=== PATIENT | female | born 1970 | race Caucasian/White ===

== ENCOUNTER → 2017-07-22 | Outpatient (CLI) | payer BC ==
[~2017-07-22] VITALS: Ht 165.1 cm; Wt 105.1 kg
[2017-07-22 14:45] VITALS: BP 118/70; PULSE 111; Ht 165.1 cm; Wt 105.1 kg
== END | disposition home or self-care (01) ==
LOC: C.NEUR 14:28
PROVIDERS: ATTEND Physician Assistant
DX: G47.30 Sleep apnea, unspecified (principal)

== ENCOUNTER → 2018-01-11 | Outpatient (CLI) | payer OTHER ==
--- NOTE | 2018-01-12 16:35 | PULMONARY FUNCTION TEST ---
CLINICAL DATA: 47-year-old female with height of 65 inches and a weight of 220 pounds referred for dyspnea and chest pain by NISREEN Franco. Spirometry pre- and post-bronchodilator were performed. FINDINGS: Pre-bronchodilator spirometry is within normal limits. FVC was 117% of predicted. FEV1 was 111% of predicted. [id number] was 89% of predicted. There was no significant improvement after inhaled bronchodilator. IMPRESSION: Normal baseline spirometry with no improvement after inhaled bronchodilator. MTDD
== END | disposition home or self-care (01) ==
LOC: C.RC 13:47
PROVIDERS: ATTEND Nurse Practitioner
DX: R06.02 Shortness of breath (principal); R07.89 Other chest pain; Z72.0 Tobacco use

== ENCOUNTER → 2018-01-28 | Outpatient (CLI) | payer OTHER ==
[~2018-01-28] MED LIST: OPTIRAY 320 IV PRN
--- NOTE | 2018-01-28 15:46 | DIAGNOSTIC IMAGING REPORT ---
CT SCAN OF THE CHEST WITH IV CONTRAST CLINICAL HISTORY: Vocal cord paralysis. COMPARISON STUDY: No priors. TECHNIQUE: Following the IV administration of 92 cc of Optiray 320, CT scan of the thorax was performed from the thoracic inlet to the upper abdomen. Images are reviewed in the axial, sagittal, and coronal planes. IV contrast was administered without complication. A dose lowering technique was utilized adhering to the principles of ALARA. CT DOSE: 2395.59 mGy.cm FINDINGS: Thyroid: Imaged portions of the thyroid gland are normal in size and attenuation. Thoracic aorta: The thoracic aorta is normal in caliber and demonstrates standard 3-vessel arch anatomy. No dissection is seen. Pulmonary vasculature: The pulmonary trunk is normal in caliber. There are no filling defects identified in the central pulmonary vessels to indicate pulmonary embolus. Note that this examination was not protocoled for evaluation of the pulmonary arteries. Heart: The heart is enlarged and without pericardial effusion. Lungs and pleural spaces: Evaluation of lung parenchyma is modestly degraded by motion artifact. There is no airspace consolidation or pleural effusion. No concerning pulmonary lesion is seen. The trachea and central airways are clear. Mediastinum: There is no mediastinal lymphadenopathy. Maxine: Clear. Axillae: There is no axillary lymphadenopathy. Upper abdomen: There is a small hiatal hernia. The gallbladder is surgically absent and there is minimal intrahepatic biliary ductal dilatation. There are least 2 nonobstructing right renal calculi measuring up to 6 mm. Skeletal structures: The skeletal structures are osteopenic. No lytic or blastic bony lesions are seen. IMPRESSION: 1. The lungs are clear. 2. Cardiomegaly. 3. Nonobstructing right renal calculi. 4. Additional findings as above. Electronically signed by: Daniele Winters M.D. 01/28/2018 3:44 PM Dictated Date/Time: 01/28/2018 3:39 PM
--- NOTE | 2018-01-28 15:48 | DIAGNOSTIC IMAGING REPORT ---
SOFT TISSUE NECK WITH HISTORY: 47 years-old Female J38.00 Vocal cord paralysisPATIENT HAS RIGHT-SIDED VOCAL CORD PA acute right-sided vocal cord paralysis COMPARISON: CT chest of same day TECHNIQUE: Multiple axial CT images of the soft tissues of the neck were obtained following the intravenous administration of 92 mL Optiray 320 IV contrast. A dose lowering technique was used consistent with the principals of JOHN. FINDINGS: Note is made of a crescencio cisterna magna. No acute process of the imaged intracranial structures. Orbits are symmetric and within normal limits. Multinodular thyroid with 9 mm nodule of the posterior right thyroid lobe. Lung apices are clear. Study is mildly motion degraded. Carotid vasculature appears to be within normal limits. The nasopharynx, oral pharynx and hypopharynx are patent. There is enlargement of the lingual tonsils with soft tissue density seen on image 127 series 8, obscured by motion artifact. No definite glottic lesion identified however evaluation is limited secondary to motion artifact. Piriform sinuses are patent. Subglottic airway is patent. Mastoid air cells and middle ear cavities are clear. Paranasal sinuses are also clear. Bones appear intact. Mild intervertebral disc space narrowing at C5-C6 with circumferential disc osteophyte complex formation. Mild multilevel facet arthrosis. There is straightening of the normal cervical lordosis. No pathologic adenopathy identified. IMPRESSION: 1. Motion degraded exam with soft tissue prominence within the region of the lingual tonsils possibly reflecting tonsillar hypertrophy with soft tissue mass thought to be less likely. These findings could be correlated with direct visualization. 2. No definite mass or focal abnormality identified involving the glottis. 3. Multinodular goiter. 4. Straightening of the normal cervical lordosis with discogenic degenerative changes at C5-C6. The above report was generated using voice recognition software. It may contain grammatical, syntax or spelling errors. Electronically signed by: King Luis M.D. 01/28/2018 3:47 PM Dictated Date/Time: 01/28/2018 3:39 PM
--- NOTE | 2018-01-28 15:58 | DIAGNOSTIC IMAGING REPORT ---
HEAD COMBO HISTORY: 47 years-old Female J38.00 Vocal cord paralysisPATIENT HAS RIGHT-SIDED VOCAL CORD PA acute vocal cord paralysis COMPARISON: CT soft tissue neck of same day TECHNIQUE: Multiple axial CT images of the head were obtained both with and without the use of 92 mL Optiray 320. A dose lowering technique was used consistent with the principals of JOHN. FINDINGS: No acute intracranial hemorrhage, midline shift, abnormal extra-axial collections, hydrocephalus or intracranial mass. Note is made of a crescencio cisterna magna. Cerebral venous sinuses appear patent. There is no abnormal intra-axial or extra-axial enhancement identified. No skull fracture. The mastoid air cells and middle ear cavities are clear. Paranasal sinuses are also generally clear. Soft tissues and orbits are unremarkable. IMPRESSION: 1. No acute intracranial abnormality. 2. No abnormal enhancement. The above report was generated using voice recognition software. It may contain grammatical, syntax or spelling errors. Electronically signed by: King Luis M.D. 01/28/2018 3:57 PM Dictated Date/Time: 01/28/2018 3:54 PM
== END | disposition home or self-care (01) ==
LOC: C.CTS 15:04
PROVIDERS: ATTEND Physician Assistant
DX: J38.01 Paralysis of vocal cords and larynx, unilateral (principal); E04.2 Nontoxic multinodular goiter; I51.7 Cardiomegaly; N20.0 Calculus of kidney; M47.812 Spondylosis without myelopathy or radiculopathy, cervical region

== ENCOUNTER → 2018-02-03 | Outpatient (CLI) | payer OTHER ==
--- NOTE | 2018-02-03 13:32 | DIAGNOSTIC IMAGING REPORT ---
THYROID ULTRASOUND CLINICAL HISTORY: Multinodular goiter COMPARISON STUDY: Neck CT January 28, 2018. TECHNIQUE: Sonography of the thyroid gland was performed. FINDINGS: The right thyroid lobe measures 4.7 x 1.8 x 2.4 cm and the left lobe measures 5.2 x 1.7 x 2 cm. Several thyroid nodules are noted, including a 1.7 x 1.5 x 0.8 cm predominantly solid nodule within the lower pole of the right lobe. There is also a 1.2 x 1.1 x 1 cm hypoechoic nodule within the posterior aspect of the midpole of the right lobe. There is a 0.7 cm left lobe nodule. A few prominent bilateral cervical lymph nodes are likely benign. These nodes are elongated and contains a fatty lynnette. IMPRESSION: 1. Multiple thyroid nodules which are nonspecific but none of which have suspicious imaging characteristics. Ultrasound-guided fine needle aspiration of a 1.7 x 1.5 x 0.8 cm nodule within the lower pole of the right lobe could be performed based on size criteria. 2. Prominent bilateral cervical lymph nodes which are likely benign. Electronically signed by: Jair Albert M.D. 02/03/2018 1:30 PM Dictated Date/Time: 02/03/2018 1:22 PM
== END | disposition home or self-care (01) ==
LOC: C.ULTR 08:26
PROVIDERS: ATTEND Nurse Practitioner Family
DX: E04.9 Nontoxic goiter, unspecified (principal); R59.0 Localized enlarged lymph nodes

== ENCOUNTER 2024-07-11 22:51 | Inpatient (IN) ==
--- NOTE | 2024-07-11 23:44 | Emergency Department Note ---
Impression & Plan Mass of small intestine, Acute epigastric pain admit to the [facility] ED Provider Note NAME: ELEANOR VALENTINO AGE: 53 SEX: Female INFORMANT: Patient ED PROVIDER(S): Candie Dang DO CHIEF COMPLAINT: Abdominal pain, vomiting and diarrhea PLAN: Disposition: admit to the [facility] MEDICAL DECISION MAKING: this is a 53-year-old female patient who presents to the emergency department with epigastric abdominal pain that radiates down to her lower abdomen and is now associated with vomiting and diarrhea. She was seen earlier this week by her PCP who prescribed medications for GERD and arranged for her to have endoscopy on August 01. patient has undergone previous colonoscopy which was normal. Patient has received a dose of IV Dilaudid and Zofran here for her pain and nausea. Laboratory studies revealed a mild leukocytosis with a white count of 13.7. H&H were stable. Renal function is normal. Glucose is 109. CT scan of the abdomen/pelvis reveals evidence of a mass in the jejunum with dilated small bowel behind it. I reviewed these findings with the patient and discussed the case with the surgical PA. [facility] and [facility] will [facility] for further [facility] care. Care/management discussed with: biofuels operations manager, [facility], [facility] PA Triage Nursing notes: reviewed and agree with them. Vital Signs: reviewed and unremarkable Differential Diagnosis: pancreatitis, gastritis, ulcerative disease, colitis Diagnostics, independently interpreted by me: ECG: Sinus rhythm at a rate of [address] segment elevation or signs of ischemia. There is no ectopy. QTc is 428 ms Cardiac Monitoring: normal sinus rhythm at a rate of 97 Imaging studies: CT scan of the abdomen/pelvis: As per stat rad. HPI: 53 year old Female arrives for evaluation of epigastric abdominal pain. patient developed epigastric abdominal pain approximately 2 months ago which has been constant. she saw her PCP couple of days ago who prescribed medications for gastroesophageal reflux disease. Since starting these medications, she developed vomiting, diarrhea and decreased appetite. Overall, the patient has noticed a decrease in her weight. PAST MEDICAL HISTORY: See Below, hypertension PAST SURGICAL HISTORY: cholecystectomy, hysterectomy SOCIAL HISTORY: lives with her , drinks alcoholic beverages(vodka) approximately 3 times a week HOME MEDICATIONS: see list ALLERGIES: none VITALS: [See Below] PHYSICAL EXAMINATION: HEENT: Head - normocephalic and atraumatic Pupils are equal, round, and reactive to light. Extraocular eye muscles are intact, and sclera are anicteric. Nose - moist nasal mucosa without discharge. Mouth - moist buccal mucosa. Oropharynx is nonerythematous and there is no tonsillar exudate or edema noted. Neck: Supple; no Cervical lymphadenopathy. Heart: Regular rate and rhythm. There is a normal S1 and S2 with no murmurs, clicks, or gallops appreciated. Lungs: Clear to auscultation bilaterally with no wheezes, rales, or rhonchi. Abdomen: Soft, moderate tenderness to palpation in the epigastrium with good bowel sounds. There are no palpable pulsatile masses or hepatosplenomegaly. There is no guarding, rigidity, or rebound noted. Extremities: No evidence of cyanosis, clubbing, or edema. There are easily palpable peripheral pulses. Skin: warm and dry with good turgor and no rashes. Emergency department treatment: lunchroom monitor, IV Dilaudid, IV Zofran emergency department course: The patient was evaluated in room B-2. A complete history and physical was performed. An order was placed for continuous cardiac monitoring. Patient was in a normal sinus rhythm at a rate of 97. Patient was given a dose of IV Dilaudid and IV Zofran for pain and nausea. She went for CT scan of the abdomen/pelvis as described above. I reviewed these findings with the patient. I discussed the case with the surgical PA and the [facility] Hospitalist. Past Med/Surg History Problem List (Updated 07/12/24 @ 05:05 by Candie Dang DO) Acute epigastric pain (Acute) Mass of small intestine (Acute) Small bowel mass Encounter for pre-operative examination Nephrolithiasis (Acute) Menorrhagia with regular cycle Anemia due to blood loss Obesity Sleep apnea in adult cpap, pt reports full compliance Medical History Basal cell carcinoma (BCC) Hypertension Surgical History S/P laparoscopic hysterectomy TLH-BS, cysto S/P Mohs surgery for basal cell carcinoma H/O wisdom tooth extraction History of tubal ligation Hx of tonsillectomy Hx of cholecystectomy Family History Father Hearing loss Hypertension Kidney stones Grandfather Kidney stones Mother Pulmonary embolism post op PE Denies family history of Ovarian cancer Breast cancer Colorectal cancer Uterine cancer Social History Smoking Status: Current some day smoker Cigarettes Per Day: Socially, 1 pack per week; Second Hand Exposure: No; Do You Dip or Chew Tobacco: No; Hx Alcohol Use: Yes Alcohol Intake Frequency Comment: social Hx Substance Use: No Preferred Language: Wolof Communication Ability: Effective Research Worker Encyclopedia Required: No Beliefs That Will Affect Care: None marital status: Current Living Situation: Spouse Feels Safe at Home: Yes Assistive Devices: Contacts and Glasses Allergies Allergies Allergy/AdvReac Type Severity Reaction Status Date / Time No Known Allergies Allergy Verified 08/13/22 15:17 Home Meds Home Medications Medication Instructions Recorded Confirmed amlodipine 10 mg-benazepril 20 mg 1 cap PO DAILY 07/12/24 07/12/24 capsule famotidine 40 mg tablet 40 mg PO QAM 07/12/24 07/12/24 pantoprazole 40 mg tablet,delayed 40 mg PO DAILYBB 07/12/24 07/12/24 release Previous Rx's Medication Instructions Recorded CPAP Machine #8 cm 08/17/19 Results & Data (ED) Vital Signs Vital Signs - 24 hr 07/11/24 22:54 07/11/24 23:13 07/11/24 23:35 Temperature 36 C L Temperature Source Temporal Artery Scan Pulse Rate 115 H 97 H Pulse Rate [Apical] Respiratory Rate 16 Respiratory Effort / Characteristics Non-Labored Spontaneous Respiratory Depth Normal Respiratory Pattern Regular Blood Pressure 134/81 Blood Pressure [Right Arm] Blood Pressure Mean 98 Blood Pressure Mean [Right Arm] Pulse Oximetry 93 95 Oxygen Delivery Method Room Air Room Air Sepsis Recent Fever Within 48 Hours No Sepsis New/Unexplained Change in Mental Status No Sepsis Action Taken by Nursing No Action Required 07/12/24 01:00 07/12/24 02:30 Temperature Temperature Source Pulse Rate Pulse Rate [Apical] 78 78 Respiratory Rate 18 18 Respiratory Effort / Characteristics Respiratory Depth Respiratory Pattern Blood Pressure Blood Pressure [Right Arm] 115/77 116/81 Blood Pressure Mean Blood Pressure Mean [Right Arm] 89 92 Pulse Oximetry 95 94 Oxygen Delivery Method Room Air Room Air Sepsis Recent Fever Within 48 Hours Sepsis New/Unexplained Change in Mental Status Sepsis Action Taken by Nursing Laboratory Data 07/11/24 23:07 07/11/24 23:07 Lab Results 07/11/24 07/11/24 Range/Units 23:04 23:07 WBC 13.79 H (4.8-10.8) K/ul RBC 5.05 (4.20-5.40) M/uL Hgb 13.3 (12.0-16.0) g/dl Hct 40.9 (37.0-47.0) % MCV 81.0 (80.0-100.0) fL MCH 26.3 (25.0-34.0) pg MCHC 32.5 (32.0-36.0) g/dL RDW Std Deviation 41.3 (36.4-46.3) fL RDW Coeff of Rl 14.1 (11.5-14.5) % Plt Count 498 H (130-400) K/uL MPV 9.2 L (9.4-12.4) fL Immature Gran % (Auto) 0.4 % Neut % (Auto) 78.8 % Lymph % (Auto) 12.3 % Troup % (Auto) 6.5 % Eos % (Auto) 1.9 % Baso % (Auto) 0.1 % Neut # (Auto) 10.87 H (1.40-6.50) K/uL Lymph # (Auto) 1.70 (1.20-3.40) K/uL Troup # (Auto) 0.90 H (0.11-0.59) K/uL Eos # (Auto) 0.26 (0.00-0.50) K/uL Baso # (Auto) 0.01 (0.00-0.20) K/uL Immature Gran # (Auto) 0.05 (0.01-0.20) K/uL Sodium 137 (136-145) mmol/L Potassium 3.6 (3.5-5.1) mmol/L Chloride 106 (98-107) mmol/L Carbon Dioxide 22 (21-32) mmol/L Anion Gap 9 (3-11) BUN 9 (6-23) mg/dl Creatinine 0.83 (0.6-1.2) mg/dl Est Cr Clr Drug Dosing 88.7 ml/min eGFR 83.72 BUN/Creatinine Ratio 10.8 (10-20) Glucose 109 H (70-99(Fasting)) mg/dl Calcium 9.1 (8.6-10.3) mg/dl Total Bilirubin 0.6 (0.2-1.0) mg/dl AST 10 L (13-39) U/L ALT 8 (7-52) U/L Alkaline Phosphatase 74 (34-104) U/L Total Protein 6.9 (6.0-8.3) gm/dl Albumin 4.1 (3.4-5.0) gm/dl Globulin 2.8 (2.5-4.0) gm/dl Albumin/Globulin Ratio 1.5 (0.9-2) Lipase 24 (11-82) U/L Urine Color Yellow Urine Appearance Turbid A (Clear) Urine pH 5.0 (4.5-7.5) Ur Specific [place] 1.022 (1.000-1.030) Urine Protein Negative (Negative) Urine Glucose (UA) Negative (Negative) Urine Ketones Trace H (Negative) Urine Blood Negative (Negative) Urine Nitrite Negative (Negative) Urine Bilirubin Negative (Negative) Urine Urobilinogen Negative (Negative) Ur Leukocyte Esterase Trace H (Negative) Urine WBC (Auto) 21-50 H (0-5) /hpf Urine RBC (Auto) >20 H (0-2) /hpf U Hyaline Cast (Auto) 0-2 (0-2) /lpf U Epithel Cells (Auto) >20 H (0-2) /hpf Urine Bacteria (Auto) 4+ H (None Seen) Calcium Oxalate Crystal Present A (None Prsent) Administered Medications Lactated Ringer's (Lr) 1,000 mls @ 80 mls/hr IV .[id number] BJ Stop: 07/13/24 03:14 Last Admin: 07/12/24 04:21 Dose: 80 mls/hr Documented By: ERM Discontinued Medications Hydromorphone HCl (Hydromorphone Inj 0.5 Mg/0.5 Ml Syr) 0.5 mg IV NOW STA Stop: 07/12/24 01:26 Last Admin: 07/12/24 01:28 Dose: 0.5 mg Documented By: NRB Hydromorphone HCl (Hydromorphone Inj 0.5 Mg/0.5 Ml Syr) 0.5 mg IV NOW STA Stop: 07/12/24 02:43 Last Admin: 07/12/24 03:00 Dose: 0.5 mg Documented By: DIEUDONNE Pantoprazole Sodium (Protonix) 40 mg in 10 mls @ 5 mls/min IV NOW ONE Stop: 07/12/24 03:01 Last Admin: 07/12/24 04:21 Dose: 5 mls/min Documented By: DIEUDONNE Ioversol (Optiray 320 100ml) 100 ml IV ONCE ONE Stop: 07/12/24 00:32 Last Admin: 07/12/24 00:31 Dose: 93 ml Documented By: BEN Ketorolac Tromethamine (Ketorolac Tromethamine 15 Mg/Ml Vial) 15 mg IV NOW STA Stop: 07/12/24 02:43 Last Admin: 07/12/24 03:00 Dose: 15 mg Documented By: DIEUDONNE Ondansetron HCl (Ondansetron Inj 2 Mg/Ml 2 Ml Vial) 4 mg IV NOW STA Stop: 07/12/24 01:26 Last Admin: 07/12/24 01:28 Dose: 4 mg Documented By: KARIE Imaging Data Radiologist's Impression: Abdomen/Pelvis CT 07/11/24 23:34 Exam(s): CT ABDOMEN + PELVIS With Contrast IV Amt: 93 CC OPTIRAY 320 EXAM: CT Abdomen and Pelvis With Intravenous Contrast CLINICAL HISTORY: Reason for exam: epigastric pain. TECHNIQUE: Axial computed tomography images of the abdomen and pelvis with intravenous contrast. CTDI is 27.89 mGy and DLP is 1305.23 mGy-cm. Automated exposure control was utilized for the study. A dose lowering technique was utilized adhering to the principles of ALARA. CONTRAST: Patient received 93 CC OPTIRAY 320 of IV contrast COMPARISON: No relevant prior studies available. FINDINGS: Lung bases: Unremarkable. No mass. No consolidation. ABDOMEN: Liver: Mild intrahepatic biliary ductal dilatation. Gallbladder and bile ducts: Postoperative changes prior cholecystectomy. Pancreas: Unremarkable. No mass. No ductal dilation. Spleen: Unremarkable. No splenomegaly. Adrenals: Unremarkable. No mass. Kidneys and ureters: Simple 3.2 x 2.9 cm right renal cyst. No follow- up of this simple cyst is necessary. Simple 0.6 cm left renal cyst. No follow-up of this simple cyst is necessary. No hydronephrosis. Stomach and bowel: Focal distention of the small bowel within the left mid abdomen. There is suggestion of a mass within the small bowel measuring 1.6 x 2.4 cm. PELVIS: Appendix: No findings to suggest acute appendicitis. Bladder: Unremarkable. No mass. Reproductive: Unremarkable as visualized. ABDOMEN and PELVIS: Intraperitoneal space: Unremarkable. No free air. No significant fluid collection. Bones/joints: No acute fracture. No dislocation. Soft tissues: Unremarkable. Vasculature: Unremarkable. No abdominal aortic aneurysm. Lymph nodes: Unremarkable. No enlarged lymph nodes. IMPRESSION: Focal dilatation of the small bowel with suggestion of a mass within the proximal jejunum. No fractures to inspection is recommended for further evaluation Electronically signed by: Tno Maki MD 07/12/24 01:20 AM Discharge Plan Visit Data Chief Complaint: Abdominal Pain Stated Complaint: ABDOMINAL PAIN, DIARRHEA,VOMITING ED Provider: Candie Dang Discharge Problem: Mass of small intestine, Acute epigastric pain Discharge Instructions Interventions: ED Discharge Assessment Last Done: 07/12/24 04:07
[2024-07-11 23:56] LABS: Basophils # (auto) 0.01 K/uL (0.00-0.20); Basophils % (auto) 0.1 %; Eosinophils # (auto) 0.26 K/uL (0.00-0.50); Eosinophils % (auto) 1.9 %; Hematocrit (blood only) 40.9 % (37.0-47.0); Hemoglobin 13.3 g/dl (12.0-16.0); Immature Granulocytes # (auto) 0.05 K/uL (0.01-0.20); Immature Granulocytes % (auto) 0.4 %; Lymphocytes % (auto) 12.3 %; Mean Corpuscular Hemoglobin 26.3 pg (25.0-34.0); Mean Corpuscular Hgb Conc 32.5 g/dL (32.0-36.0); Mean Platelet Volume 9.2 fL (9.4-12.4); Monocytes % (auto) 6.5 %; Neutrophils # (auto) 10.87 K/uL (1.40-6.50); Neutrophils % (auto) 78.8 %; Platelet Count 498 K/uL (130-400); RDW Coefficient of Variation 14.1 % (11.5-14.5); RDW Standard Deviation 41.3 fL (36.4-46.3); Red Blood Count 5.05 M/uL (4.20-5.40); White Blood Count 13.79 K/ul (4.8-10.8)
[2024-07-12 00:10] LABS: Albumin Globulin Ratio 1.5 (0.9-2); Albumin Level 4.1 gm/dl (3.4-5.0); BUN Creatinine Ratio 10.8 (10-20); Bilirubin,Total 0.6 mg/dl (0.2-1.0); Calcium 9.1 mg/dl (8.6-10.3); Creatinine Clr Calc Pharmacy 88.7 ml/min; Globulin 2.8 gm/dl (2.5-4.0); Potassium 3.6 mmol/L (3.5-5.1); Total Protein 6.9 gm/dl (6.0-8.3)
[2024-07-12 00:16] LABS: Appearance Urine Turbid (Clear); Bacteria Urine Automated 4+ (None Seen); Bilirubin Urine Negative (Negative); Blood Urine Negative (Negative); Calcium Oxalate Crystals Urine Present (None Prsent); Cast Urine Automated 0-2 /lpf (0-2); Color Urine Yellow; Epithelial Cell Urine Auto >20 /hpf (0-2); Glucose Urine UA Negative (Negative); Ketones Urine Trace (Negative); Leukocyte Esterase Urine Trace (Negative); Nitrite Urine Negative (Negative); Protein Urine Negative (Negative); RBC Urine Automated >20 /hpf (0-2); Specific Gravity Urine 1.022 (1.000-1.030); Urobilinogen Urine Negative (Negative); WBC Urine Automated 21-50 /hpf (0-5)
[2024-07-12] MEDS: OPTIRAY 320 100ml IV ONE (00:31)
--- NOTE | 2024-07-12 01:21 | CT Scan Report ---
Exam(s): CT ABDOMEN + PELVIS With Contrast IV Amt: 93 CC OPTIRAY 320 EXAM: CT Abdomen and Pelvis With Intravenous Contrast CLINICAL HISTORY: Reason for exam: epigastric pain. TECHNIQUE: Axial computed tomography images of the abdomen and pelvis with intravenous contrast. CTDI is 27.89 mGy and DLP is 1305.23 mGy-cm. Automated exposure control was utilized for the study. A dose lowering technique was utilized adhering to the principles of ALARA. CONTRAST: Patient received 93 CC OPTIRAY 320 of IV contrast COMPARISON: No relevant prior studies available. FINDINGS: Lung bases: Unremarkable. No mass. No consolidation. ABDOMEN: Liver: Mild intrahepatic biliary ductal dilatation. Gallbladder and bile ducts: Postoperative changes prior cholecystectomy. Pancreas: Unremarkable. No mass. No ductal dilation. Spleen: Unremarkable. No splenomegaly. Adrenals: Unremarkable. No mass. Kidneys and ureters: Simple 3.2 x 2.9 cm right renal cyst. No follow- up of this simple cyst is necessary. Simple 0.6 cm left renal cyst. No follow-up of this simple cyst is necessary. No hydronephrosis. Stomach and bowel: Focal distention of the small bowel within the left mid abdomen. There is suggestion of a mass within the small bowel measuring 1.6 x 2.4 cm. PELVIS: Appendix: No findings to suggest acute appendicitis. Bladder: Unremarkable. No mass. Reproductive: Unremarkable as visualized. ABDOMEN and PELVIS: Intraperitoneal space: Unremarkable. No free air. No significant fluid collection. Bones/joints: No acute fracture. No dislocation. Soft tissues: Unremarkable. Vasculature: Unremarkable. No abdominal aortic aneurysm. Lymph nodes: Unremarkable. No enlarged lymph nodes. IMPRESSION: Focal dilatation of the small bowel with suggestion of a mass within the proximal jejunum. No fractures to inspection is recommended for further evaluation Electronically signed by: Ton Maki MD 07/12/24 01:20 AM
[2024-07-12] MEDS: HYDROmorphone INJ 0.5 MG/0.5 ML SYR IV STA ×2 (01:28→03:00)
[2024-07-12] MEDS: ONDANSETRON INJ 2 MG/ML 2 ML VIAL IV STA (01:28)
--- NOTE | 2024-07-12 02:15 | Surgery Consultation ---
<Statement entered by Diego Collier DO - 07/12/24 12:49> This case has been discussed with the overnight surgical PA. I agree with this plan. This a.m. we were able to intercept the patient on her way to the endoscopy suite for her EGD. We will follow-up with GI regarding these results. Further surgical plan from there. Date of Consultation July 12, 2024 Assessment & Plan (1) Small bowel mass: I discussed with the treating emergency room physician the patient is going to be admitted on the hospitalist service. From a surgical perspective we recommend the following: Would implement n.p.o. status Would hydrate the patient gently with IV fluids while she is n.p.o. At the present time the patient has not had any emesis in approximate 2 hours and it does not appear she is obstructed on CT scan therefore I do not feel we need to place an NG tube at this time Serial labs should be followed Prior to entertaining any surgical intervention it may be beneficial to enlist the help of gastroenterology to see if a possible push enteroscopy to be performed for further evaluation and possible mass noted in jejunum on CT scan At the present time the patient is normotensive without tachycardia fever and is nontoxic-appearing. Additional recommendations with forthcoming based on her clinical course as it unfolds History of Present Illness Reason for Consultation: Possible jejunal mass History of Present Illness This is a 53-year-old female who presented to the emergency department secondary to abdominal pain. Patient says that she has had epigastric abdominal pain for approximately 5 days that is oftentimes worse with eating. She does not report any modifying factors. She does report decreased appetite. For the past 3 days she has had nausea and vomiting along with diarrhea. She does note some melanotic appearing bowel movements at times. She does note her most recent emesis was approximate 4 hours ago. In addition, the patient notes that she has lost approximately 10 pounds over the past 2 weeks. She has no prior history of cancer. She has had prior abdominal surgeries in the form of a cholecystectomy and hysterectomy. The patient notes that she was seen by her primary care team and treated for acid reflux and she also had a EGD scheduled for early July of this year. Patient does note that she had a colonoscopy in 2019 at which time polyps were removed and the patient was told she would need another colonoscopy in 5 years. Since arrival to the hospital the patient has had labs and imaging which I independently viewed. She did have a CT scan of the abdomen pelvis that showed some focal dilatation of the small bowel with concern for possible mass in the proximal jejunum. This measured approximately 1.6 x 2.4 cm. Labs included CBC white blood cell count was elevated 13.7. Hemoglobin and hematocrit were within the normal range. Her platelet count was 498,000. Chemistry profile showed sodium and potassium as well as the BUN and creatinine were normal. There is no elevation of patient's LFTs or lipase. Urinalysis showed trace leukocyte esterase and pyuria with 21-50 white blood cells per high-power field. There is 4+ bacteria on the study. At the time of my interview she was resting comfortably in bed and she was in no distress. Allergies Allergy/AdvReac Type Severity Reaction Status Date / Time No Known Allergies Allergy Verified 08/13/22 15:17 Home Medications Medication Instructions Recorded Confirmed Type lisinopril 20 mg tablet 20 mg PO QAM 08/14/19 08/13/22 History verapamil 240 mg 24 hr 240 mg PO QAM 08/14/19 08/13/22 History capsule,extended release CPAP Machine #8 cm 08/17/19 08/13/22 Rx Patient History Medical History Basal cell carcinoma (BCC) Hypertension Surgical History S/P laparoscopic hysterectomy TLH-BS, cysto S/P Mohs surgery for basal cell carcinoma H/O wisdom tooth extraction History of tubal ligation Hx of tonsillectomy Hx of cholecystectomy Family History Father Hearing loss Hypertension Kidney stones Grandfather Kidney stones Mother Pulmonary embolism post op PE Denies family history of Ovarian cancer Breast cancer Colorectal cancer Uterine cancer Social History Smoking Status: Current some day smoker Cigarettes Per Day: Socially, 1 pack per week; Second Hand Exposure: No; Do You Dip or Chew Tobacco: No; Hx Alcohol Use: Yes Alcohol Intake Frequency Comment: social Hx Substance Use: No Preferred Language: Tajik Communication Ability: Effective Regulatory Affairs Portfolio Leader Required: No Beliefs That Will Affect Care: None marital status: Current Living Situation: Spouse Feels Safe at Home: Yes Assistive Devices: Contacts and Glasses Review of Systems Review of Systems: All systems reviewed & are unremarkable except as noted in HPI & below Physical Exam Constitutional: WD/WN, vitals as above Eyes: no conjunctival abnormality ENMT: Ears: no hearing impairment and no external ear abnormality Neck: trachea midline Respiratory: normal respiratory effort; no respiratory distress and no labored breathing Cardiovascular: Rate/Rhythm: regular rate and regular rhythm Gastrointestinal (Abdomen): Patient's abdomen was soft and nondistended.Is no rebound tenderness or guard ing. There is no pain with palpation. With a female nurse seconds handler present I performed a digital rectal exam. Patient had normal sphincter tone. Hemoccult was noted to be slightly positive. Musculoskeletal: No calf tenderness Skin: no rashes Neurologic: moves all extremities Psychiatric: A+Ox3, euthymic affect Results & Data Vital Signs (Past 12 Hours) Vital Signs Temp Pulse Pulse Resp BP BP Pulse Ox 07/12/24 01:00 78 18 115/77 95 07/11/24 23:35 95 07/11/24 23:13 97 H 07/11/24 22:54 36 C L 115 H 16 134/81 93 O2 Del Method 07/12/24 01:00 Room Air 07/11/24 23:35 Room Air 07/11/24 23:13 07/11/24 22:54 Room Air PG Care Time/CCT Total # of Minutes Spent Total Time Spent with Patient: Total time spent is greater than 50% in coordination of care (as documented) at patient's floor/unit and/or counseling patient: Coding Level of Care Code 49602 IN/OBS CONSULT LVL 5,80M Diagnoses Small bowel mass K63.89
--- NOTE | 2024-07-12 02:43 | History & Physical Report ---
Date of Service July 12, 2024 Assessment & Plan (1) Small bowel mass: Plan: Pt is a 53 yo female with PMH of HTN presenting to the ER d/t abdominal pain. Small bowel mass/abdominal pain - unclear etiology of pt's pain - lab work significant for leukocytosis to 13, Hgb 13.3, plt 498, CMP WNL - CTAP showing possible small bowel mass measuring 1.6cm x 2.4cm - pt had colonoscopy in 2020 with removal of two 2mm hyperplastic polyps with recommendation for repeat colonoscopy in 5 yrs which makes pt due now - pain control with tylenol, toradol, and dilaudid PRN; PPI daily; nausea control with zofran PRN - consult GI for consideration of possible push enteroscopy for further eval of small bowel mass HTN - continue home medication or formulary equivalent Sleep apnea - CPAP HS Diet: NPO except meds, LR at 80 mL/hr VTE ppx: low risk- encourage ambulation Code: full Dispo: admit to med/surg (2) Sleep apnea in adult: (3) Hypertension: History of Present Illness Chief Complaint: abdominal pain Primary Care Provider: Rose Jackson DO Pt is a 53 yo female with PMH of HTN presenting to the ER d/t abdominal pain. Pt notes her abdominal pain began ~2 months ago. It was intermittent at that time; she was evaluated by her PCP who treated her for acid reflux. She was started on acid reducing medications and set up for an EGD which she was set to have in July. Over the last 3 days, she notes constant, dull, aching epigastric abdominal pain. She has had watery diarrhea w/o visible blood and vomiting. She has been unable to keep food/fluids down which prompted her to come to the hospital for evaluation. In the ER, pt was given zofran x1 and dilaudid 0.5mg x1. Allergies Allergy/AdvReac Type Severity Reaction Status Date / Time No Known Allergies Allergy Verified 08/13/22 15:17 Home Medications Medication Instructions Recorded Confirmed Type CPAP Machine #8 cm 08/17/19 07/12/24 Rx amlodipine 10 mg-benazepril 20 mg 1 cap PO DAILY 07/12/24 07/12/24 History capsule famotidine 40 mg tablet 40 mg PO QAM 07/12/24 07/12/24 History pantoprazole 40 mg tablet,delayed 40 mg PO DAILYBB 07/12/24 07/12/24 History release Past Med/Surg History Problem List (Updated 07/12/24 @ 09:49 by Nadya Jacques PA-C) Abnormal CT scan, small bowel Acute epigastric pain (Acute) Mass of small intestine (Acute) Small bowel mass Encounter for pre-operative examination Nephrolithiasis (Acute) Menorrhagia with regular cycle Anemia due to blood loss Obesity Sleep apnea in adult cpap, pt reports full compliance Medical History Basal cell carcinoma (BCC) Hypertension Surgical History S/P laparoscopic hysterectomy TLH-BS, cysto S/P Mohs surgery for basal cell carcinoma H/O wisdom tooth extraction History of tubal ligation Hx of tonsillectomy Hx of cholecystectomy Family History Father Hearing loss Hypertension Kidney stones Grandfather Kidney stones Mother Pulmonary embolism post op PE Denies family history of Ovarian cancer Breast cancer Colorectal cancer Uterine cancer Social History Smoking Status: Current some day smoker Tobacco Type: Cigarettes Cigarettes Per Day: Socially, 1 pack per week; Second Hand Exposure: No; Do You Dip or Chew Tobacco: No; Hx Alcohol Use: Yes Alcohol type: beer Alcohol Intake Frequency Comment: social Hx Substance Use: No Preferred Language: Anguillan Communication Ability: Effective Attorney Required: No Beliefs That Will Affect Care: None marital status: Current Living Situation: Alone Other Information That Helps Us Care for You: No Feels Safe at Home: Yes Safety Concerns: Feels Safe At This Time Assistive Devices: Glasses Review of Systems Review of Systems: As per HPI Physical Exam Constitutional: NAD, vitals WNL. Eyes: Conjunctivae normal. Respiratory: CTA bilaterally. Non labored breathing. No rhonchi, wheezing, or crackles. Cardiovascular: RRR. No murmurs noted. No LE edema. Gastrointestinal (Abdomen): Tender in epigastric region, +BS. No guarding. No masses noted. Skin: No rashes or skin lesions noted. Neurologic: Sensation grossly intact. No FND appreciated. Psychiatric: Speech of normal pace and content. Mood and affect congruent. Results & Data Results & Data Vital Signs (Past 12 Hours) Vital Signs Temp Pulse Pulse Resp BP BP Pulse Ox 07/12/24 02:30 78 18 116/81 94 07/12/24 01:00 78 18 115/77 95 07/11/24 23:35 95 07/11/24 23:13 97 H 07/11/24 22:54 36 C L 115 H 16 134/81 93 O2 Del Method 07/12/24 02:30 Room Air 07/12/24 01:00 Room Air 07/11/24 23:35 Room Air 07/11/24 23:13 07/11/24 22:54 Room Air Supervising Physician Co-Signing Physician Notes Patient seen and examined, chart reviewed, case discussed with Dr. Hill and I agree with the assessment and plan as above. In brief, patient is a 53yo female presenting with 2 months of abdominal pain, intermittent. Fairly constant epigastric pain over the last three days. Patient is resting comfortably in bed, no acute complaints NC/AT, MMM, neck supple +S1/S2, regular, no m/r/g Lungs CTA Abd soft, some epigastric and mid-abdominal tenderness with palpation, no rebound/guarding Labs and images reviewed CT with focal dilatation of the small bowel with suggestion fo a mass in the proximal jejunum. Assessment/Plan CT findings with possible jejunal mass - pain control as needed. GI consultation appreciated Remainder as above Resident Activity Tracking Resident Involvement: Resident Care Provided Care Provided: [facility] Medicine
[2024-07-12] MEDS ORDERED: ONDANSETRON INJ 2 MG/ML 2 ML VIAL IV PRN ×2 (02:49→13:04)
[2024-07-12] MEDS ORDERED: MELATONIN 3 MG TAB PO PRN (02:49)
[2024-07-12] MEDS: KETOROLAC TROMETHAMINE 15 MG/ML VIAL IV STA (03:00)
--- OUTSIDE RECORDS SUMMARY | 2024-07-12 03:59 | External Medical Summary | Continuity of Care Document ---
Author Name Unknown Organization [address] Address [address] [place] [address] [id number] Care Team Providers Care Supervising Bailiff Name Role Phone Rose Snell Primary Care P hysician [phone] [id number] Date[facility]s): 07/06/24 - 07/06/[address] [place] [address], [address] [address] [phone] Encounter Diagnosis Body mass index [BMI] 35.0-35.9, adult(Discharge Diagnosis) - 07/06/24 GERD with esophagitis(Discharge Diagnosis) - 07/06/24 Discharge Disposition: Home or Self Care Attending Physician: Juan Jackson DO, Mariana Annette Referring Physician: Juan Jackson DO, Mariana Annette Allergies, Adverse Reactions, Alerts No Known Allergies Assessment and Plan Extracted from: Title:Office Visit Note Author:Juan Jackson DO, Mariana Annette Date:07/06/24 Body mass index [BMI] 35.0-3 5.9, adult GERD with esophagitis Will stop omeprazole, start pantoprazole 40mg daily, add famotidine 40mg at bedtime discussed dietary changes Get EGD f/u in 6 weeks Immunizations Given and Recorded Vaccine Date Status Refusal Reason zoster vaccine, inactivated 1 09/28/23 Given zoster vaccine, inactivated 2 07/28/23 Given influenza virus vaccine, inactivated 06/06/23 Arthur rded influenza virus vaccine, inactivated 05/29/22 Arthur rded tetanus/diphtheria/pertuss, acel (Tdap) 3 07/08/22 Given tetanus/diphtheria/pertuss, acel (Tdap) 07/24/20 G iven tetanus/diphtheria/pertuss, acel (Tdap) 11/10/07 R ecorded 1Result Comment: Alyssia Medina Lpn [id number] 08/18/25 2Result Comment: Swetha Ansari, Rn [id number] 05/05/25 3Result Comment: mei branch Medications amlodipine-benazepril 10 mg-20 mg oral capsule Start: 01/17/24 6:04:00 PM EDT, See Instructions, Disp# 30 cap, Refills: 5, TAKE 1 CAPSULE BY MOUTH EVERY DAY, Pharmacy: [id number] Start Date: 01/17/24 Status: Ordered famotidine 40 mg oral tablet Start: 07/06/24 1:48:00 PM EDT, 1 tab, PO, qhs, Disp# 90 tab, Refills: 1, Pharmacy: [id number] Start Date: 07/06/24 Status: Ordered ibuprofen 600 mg oral tablet Start: 11/19/23 1:34:00 PM EST, See Instructions, Disp# 120 tab, Refills: 3, TAKE 1 TABLET BY MOUTH 4TIMES A DAY NEEDED FOR PAIN, Pharmacy: [id number] Start Date: 11/19/23 Status: Ordered Protonix 40 mg oral delayed release tablet Start: 07/06/24 1:48:00 PM EDT, 1 tab, PO, Daily, Disp# 90 tab, Refills: 3, take on empty stomach, waitat least 30min before eating, Pharmacy: [id number] Start Date: 07/06/24 Status: Ordered Tums Start: 07/06/24 1:38:00 PM EDT, 500 mg =, PO, as needed for breakthru pain Start Date: 07/06/24 Status: Ordered Mental Status 07/06/24 Barriers to Learning one year None evide nt Mandatory Health Literacy Documentation Yes Health Literacy Communication Barriers N ever Primary Language Marshallese Problem List Condition Confirmation Course Effective Dates Status H ealth Status Informant Basal cell carcinoma of nose Confirmed Active BCC (basal cell carcinoma of skin) Confirmed Active Hx of sleep apnea Confirmed Active Hyperlipidemia Confirmed Active Hypertensive disorder Confirmed Active Smoker Confirmed Active Weight disorder Confirmed Active Diagnosis Diagnosis Type Effective Dates Health Status Clinical Service Informant Body mass index [BMI] 35.0-35.9, adult Discharge Diagnosis 07/06/24 Non-Specified GERD with esophagitis Discharge Diagnosis 07/06/24 Non-Specified Procedures Procedure Date Related Diagnosis Body Site Status Laparoscopic hysterectomy 1 11/11/20 Completed Colonoscopy 2, 3 09/24/20 Complete d Shave biopsy and cauterization of skin 08/26/20 Completed Mammogram 4 07/17/20 Completed Mammogram - screening 5 02/23/18 C ompleted DXA of axial and appendicula r skeleton 6 02/21/18 Completed Shave biopsy 7 02/16/18 Completed Echocardiogram 8 02/10/18 Complete d Pulmonary function test 9 01/11/18 Completed Mohs micrographic surgery 10 08/18/17 Completed Shave biopsy of skin 06/22/17 Comp leted PAP test date 11 06/16/16 Complete d Shave biopsy of skin 12 12/13/13 C ompleted Curettage and cauterization of skin lesion 09/29/13 Completed Shave biopsy of skin 09/29/13 Comp leted Cholecystectomy 2001 Completed Tonsillectomy and adenoidectomy Completed Tubal ligation Completed 1Robotic assisted total laparoscopic hysterectomy with bilateral salpingectomy 2COLO to cecum rectal polyps 2 mm each times 5 CF, 3Pathology results: Rectal polyp, polypectomy: segments of hyperplastic polyp. Repeat in 5 years. 4IMPRESSION: ACR BI-RADS CATEGORY 2: BENIGN There is no mammographic evidence of malignancy. A 1 year screening mammogram is recommended. 5There is no mammographic evidence of malignancy. A 1 year screening mammogram is recommended. 6FOLLOW UP RECOMMENDED IN FEBRUARY 2020 7right neck 8TRANSTHORACIC ECHOCARDIOGRAM 9Impression: Normal baseline spirometry with no improvement after inhaled bronchodilator 10right nose 11Negative for intraepithelial lesion or malignancy 12left bridge of nose Vital Signs Most recent to oldest [Reference Range]: 1 Height 165.6 cm (07/06/24 1:30 PM) Patient Weight 97.4 kg (07/06/24 1:30 PM) Body Mass Index 35.52 kg/m2 (07/06/24 1:30 PM) Temperature [36.5-37.9 DegC] 36.5 DegC (07/06/24 1:30 PM) Heart Rate 86 bpm (07/06/24 1:30 PM) Respiratory Rate 16 br/min (07/06/24 1:30 PM) Blood Pressure 122/88mmHg (07/06/24 1:30 PM) Cuff Pulse Pressure 34 mmHg (07/06/24 1:30 PM) Social History Social History Type Response Tobacco Current some day smo ker, Cigarettes 1 Smoking Status Current every day li ght smoker Sex Sex Representation Female (finding) 1Social smoking. Maybe one pack per week. FCM Outpt Note * Juan Jackson DO, Mariana Annette: PERFORM Event Display: FCM Outpt Note Authored Date: [id number] Chief Complaint ongoing stomach issues-for over bowel issues-bowel movement every 3 days- noted reflux- prilosec-colonoscopy 5 years ago. History of Present Illness Presents to discuss abdissues feels like she has a ball in her stomach, feels her belly is "sour" has been taking omeprazole 20mg OTC daily,and tums PRN ongoing for ~2 months The omeprazole helps with burning in her chest but she still has persistent epigastric discomfort. notes she is often not hungry, eating causes pain. Usually cooks at home but anything she eats causes pain. Takes ibuprofen about 2x per week. no hematochezia, has a BM every 3 days. Physical Exam Vitals & Measurements T:36.5C HR:86(Monitored) RR:16 BP:122/88 SpO2:97% HT:165.6cm WT:97.400kg(Dosing) WT:97.4kg BMI:35.52 PHQ2 Data(Data Documented on:07/06/2024 13:30) Emotional health assessment NEGATIVE Gastrointestinal: _Soft, mild epigastric tenderness, no rebound or guarding, Non-distended, Normal bowel sounds. Assessment/Plan Body mass index [BMI] 35.0-35.9, adult GERD with esophagitis Will stop omeprazole, start pantoprazole 40mg daily, add famotidine 40mg at bedtime discussed dietary changes Get EGD f/u in 6 weeks Attestation Time spent: Pre-visit planning: _4 Teue-av-olik visit: _15 Post-visit (orders/documentation/coordination of care):5 Total visit time: _24 Problem List/Past Medical History Ongoing Basal cell carcinoma of nose BCC (basal cell carcinoma of skin) Hx of sleep apnea Hyperlipidemia Hypertensive disorder Smoker Weight disorder Resolved Chest tightness Sleep apnea Tobacco user Well adult exam Procedure/Surgical History Laparoscopic hysterectomy| Service Date: 03/01/2021Colonoscopy| Service Date: 1Shave biopsy and cauterization of skin| Service Date: 08/26/2020Mammogram| Service Date: 07/17/2020Mammogram - screening| Service Date: 02/23/2018DXA of axial and appendicular skeleton| ServiceDate: 02/21/2018Shave biopsy| Service Date: 02/16/2018Echocardiogram| Service Date: 02/10/2018Pulmonary function test| Service Date: 01/11/2018Mohs micrographic surgery| Service Date: 08/18/2017Shave biopsy of skin| Service Date: 06/22/2017PAP test date| Service Date: 06/16/2016Shave biopsy of skin| Service Date: 12/13/2013Curettage and cauterization of skin lesion| Service Date: 09/29/2013Shave biopsy of skin| Service Date: 09/29/2013Cholecystectomy| Service Date:2002Tonsillectomy and adenoidectomyTubal ligation Medications amlodipine-benazepril(amlodipine-benazepril 10 mg-20 mg oral capsule), See Instructions calcium carbonate(Tums), 500 mg, PO famotidine(famotidine 40 mg oral tablet), 40 mg= 1 tab, PO, qhs, 1 refills ibuprofen(ibuprofen 600 mg oral tablet), See Instructions, 3 refills pantoprazole(Protonix 40 mg oral delayed release tablet), 40 mg= 1 tab, PO, Daily, 3 refills Allergies NKA Social History Smoking Status Current every day light smoker Alcohol Use:Current Type:Beer, Wine Frequency:1-2 times per year Exercise - Regular exercise Tobacco - Medium Risk Use:Current some day smoker Type:Cigarettes - Comments: Social smoking. Maybe one pack per week. Family History Hypertension: Father and Brother. Health Status Family Member(s) Immunizations Vaccine Date Status zoster vaccine, inactivated 09/28/2023 Given Comments : Alyssia Medina Lpn [id number] 08/18/25 zoster vaccine, inactivated 07/28/2023 Given Comments : Swetha Ansari Rn [id number] 05/05/25 influenza virus vaccine, inactivated 06/06/2023 Recorded tetanus/diphtheria/pertuss, acel (Tdap) 07/08/2022 Given Comments : mei branch influenza virus vaccine, inactivated 05/29/2022 Recorded tetanus/diphtheria/pertuss, acel (Tdap) 07/24/2020 Given tetanus/diphtheria/pertuss, acel (Tdap) 11/10/2007 Recorded Recommendations Health Maintenance Pending(in the next year) OverDue Adult Influenza Vaccine due03/12/24and every 1year Due Adult COVID-19 Vaccination due07/06/24Unknown Frequency Adult Social Determinants of Health Screening due07/06/24Unknown Frequency Pneumococcal Vaccine Adults and Adolescents with Chronic Illness due07/06/24One-time only Satisfied(in the past 1 year) Satisfied Body Mass Index on07/06/24.Satisfied by JAIME Weiss Angela Hepatitis C Screening on08/03/23.Satisfied by Contributor_system, [facility] Shingles Vaccine on07/28/23.Satisfied by JAIME Ashley Angela Electronic Signature on File Electronically Reviewed/Signed by: Rose Jackson DO Author Signature Dt/Tm:07/06/2024 02:09 PM Department of Family Medicine [facility] Patient Care team information Care Team Personnel Name: Juan Jackson DO, Mariana Annette Position: Physician - Family Med Member Role: Primary Care Provider Address: [address] [place] [address] Care Team Related Persons Name: MANASA VALENTINO Name: ADRIEL VALENTINO Name: ARVIN VALENTINO
[2024-07-12] MEDS ORDERED: NON-FORMULARY MEDICATION (Cpap Machine misc) SCH (04:07)
[2024-07-12] MEDS ORDERED: HYDROmorphone INJ 0.5 MG/0.5 ML SYR IV PRN (04:07)
[2024-07-12] MEDS ORDERED: KETOROLAC TROMETHAMINE 15 MG/ML VIAL IV PRN (04:07)
[2024-07-12] MEDS: PANTOprazole 40 MG/10 ML SYR IV ONE (04:21)
[2024-07-12] MEDS: LACTATED RINGER'S 1,000 ML IV SCH (04:21)
--- NOTE | 2024-07-12 08:19 | Hospitalist Progress Note ---
Date of Service July 12, 2024 Assessment & Plan (1) Small bowel mass: Plan: Pt is a 53 yo female with PMH of HTN presenting to the ER d/t abdominal pain. Small bowel mass/abdominal pain - unclear etiology of pt's pain - CTAP showing possible small bowel mass measuring 1.6cm x 2.4cm - pt had colonoscopy in 2020 with removal of two 2mm hyperplastic polyps with recommendation for repeat colonoscopy in 5 yrs which makes pt due now - pain control with Tylenol, Toradol, and Dilaudid PRN; PPI daily; nausea control with zofran PRN - EGD performed today without findings of any significant pathology. Leukocytosis - unclear etiology at this time - Remains afebrile - left shift present, thrombocytosis HTN - continue home medication or formulary equivalent Sleep apnea - CPAP HS Diet: NPO except meds, LR at 80 mL/hr VTE ppx: low risk- encourage ambulation Code: full Dispo: admit to med/surg (2) Sleep apnea in adult: (3) Hypertension: Admission and Anticipated Discharge Date Admission Date: July 12, 2024 Supervising Physician Co-Signing Physician Notes I personally examined the patient and verified elise points of history and exam, discussed case, and agree with decision making and plan documented by Dr. Castillo. Patient is a 53-year-old female on admission for severe epigastric abdominal pain found to have an abnormal CT scan with focal dilatation of the small bowel and suggestion of mass measuring 1.6 x 2.4 cm. Prior to admission, patient endorses 3 days of vomiting and diarrhea. Subsequently patient underwent enteroscopy, 2 cold biopsies were obtained at ampulla [place], otherwise no si gnificant pathology was found. + hemoccult in ED. On exam, patient was resting comfortably in bed, about to eat full liquid diet, denied any pain, nausea, diarrhea, or other concerns that brought her in. Abdomen was nontender and soft with normal bowel sounds. UA suspicious for infection, patient denies symptoms, awaiting urine and stool cultures. Will continue to monitor for clinical improvement. Subjective Patient seen and evaluated at bedside this morning. No acute events overnight. Vitals and labs reviewed. Pt with continuing but milder abdominal pain. Review of Systems Review of Systems: reviewed, per HPI Physical Exam Physical Exam: Constitutional: well-appearing, no acute distress HEENT: NCAT, no conjunctival injection CV: regular rhythm, no murmur appreciated Resp: CTABL, no wheezes/rales/rhonchi appreciated, no increased work of breathing GI: soft, nondistended, mildly tender on exam MSK: no gross deformities appreciated Skin: warm, dry, no rash appreciated Neuro: alert, oriented, no focal neurologic deficit appreciated Results & Data Results & Data Vital Signs (Past 12 Hours) Vital Signs Temp Pulse Pulse Resp BP BP Pulse Ox 07/12/24 06:42 97 07/12/24 06:12 96 07/12/24 05:51 97 07/12/24 05:21 97 07/12/24 05:12 97 07/12/24 05:03 97 07/12/24 05:00 98/73 L 07/12/24 05:00 98/73 L 07/12/24 05:00 87 18 98/73 L 97 07/12/24 04:54 97 07/12/24 04:42 97 07/12/24 04:33 96 07/12/24 04:30 113/78 07/12/24 04:30 113/78 07/12/24 04:30 113/78 07/12/24 04:27 96 07/12/24 04:24 97 07/12/24 04:12 96 07/12/24 04:00 97 07/12/24 04:00 103/77 07/12/24 04:00 103/77 07/12/24 04:00 103/77 07/12/24 03:54 96 07/12/24 03:27 96 07/12/24 03:18 96 07/12/24 03:06 93 07/12/24 02:30 116/81 07/12/24 02:30 116/81 07/12/24 02:30 116/81 07/12/24 02:30 78 18 116/81 94 07/12/24 02:27 93 07/12/24 02:03 94 07/12/24 02:00 119/74 07/12/24 02:00 119/74 07/12/24 01:54 96 07/12/24 01:51 93 07/12/24 01:30 106/78 07/12/24 01:12 94 07/12/24 01:04 115/77 07/12/24 01:00 78 18 115/77 95 10/29/24 23:42 91 H 13 93 07/11/24 23:35 95 07/11/24 23:30 127/77 07/11/24 23:27 98 H 17 95 07/11/24 23:13 97 H 07/11/24 23:12 112/69 07/11/24 23:12 112/69 07/11/24 23:12 112/69 07/11/24 22:54 36 C L 115 H 16 134/81 93 O2 Del Method 07/12/24 06:42 07/12/24 06:12 07/12/24 05:51 07/12/24 05:21 07/12/24 05:12 07/12/24 05:03 07/12/24 05:00 07/12/24 05:00 07/12/24 05:00 Room Air 07/12/24 04:54 07/12/24 04:42 07/12/24 04:33 07/12/24 04:30 07/12/24 04:30 07/12/24 04:30 07/12/24 04:27 07/12/24 04:24 07/12/24 04:12 07/12/24 04:00 07/12/24 04:00 07/12/24 04:00 07/12/24 04:00 07/12/24 03:54 07/12/24 03:27 07/12/24 03:18 07/12/24 03:06 07/12/24 02:30 07/12/24 02:30 07/12/24 02:30 07/12/24 02:30 Room Air 07/12/24 02:27 07/12/24 02:03 07/12/24 02:00 07/12/24 02:00 07/12/24 01:54 07/12/24 01:51 07/12/24 01:30 07/12/24 01:12 07/12/24 01:04 07/12/24 01:00 Room Air 07/11/24 23:42 07/11/24 23:35 Room Air 07/11/24 23:30 07/11/24 23:27 07/11/24 23:13 07/11/24 23:12 07/11/24 23:12 07/11/24 23:12 07/11/24 22:54 Room Air Resident Activity Tracking Resident Involvement: Resident Care Provided Care Provided: Adult Hospital Medicine
[2024-07-12] MEDS: amLODIPine BESYLATE 5 MG TAB PO SCH (09:17)
[2024-07-12] MEDS: ENALAPRIL MALEATE 10 MG TAB PO SCH (09:17)
[2024-07-12] MEDS: PANTOprazole 40 MG/10 ML SYR IV SCH (09:18)
--- NOTE | 2024-07-12 09:41 | Gastrointestinal Consultation ---
Date of Consultation July 12, 2024 Assessment & Plan (1) Abnormal CT scan, small bowel: -Keep NPO for small bowel enteroscopy today -IV Protonix 40 mg BID -Stool PCR -Further recommendations pending results of testing Supervising Physician Co-Signing Physician Notes I examined the patient and reviewed patient's chart , laboratory data and imaging studies. I agree with with assessment and plan of care as suggested by advanced practice provider. Symptoms are suggestive of gastroenteritis. CT scan showed possible proximal jejunum. Enteroscopy and possible biopsy scheduled. History of Present Illness Reason for Consultation: Jejunal mass Attending Physician: Nhung Silva DO History of Present Illness Patient is a 53 yo female who developed epigastric pain 1 week ago. She saw her PCP and was given Pantoprazole 40 mg daily & Famotidine 40 mg daily. She notes that she felt the acid sensation improved, but then she developed lower abdominal pain, vomiting, & the feeling of needing to move her bowels. She notes loose, watery stool. She was not getting better so she presented to the ED. She notes that once per month over the past several years she had solid food dysphagia. In the ED she had a CT scan that indicated a possible jejunal mass. She notes a history of colonoscopy 4 years ago with polyps. She has not had an EGD. WBC 13,790. Plt 498. AST & ALT unremarkable. T bili normal. History of cholecystectomy & hysterectomy. Allergies Allergy/AdvReac Type Severity Reaction Status Date / Time No Known Allergies Allergy Verified 08/13/22 15:17 Home Medications Medication Instructions Recorded Confirmed Type CPAP Machine #8 cm 08/17/19 07/12/24 Rx amlodipine 10 mg-benazepril 20 mg 1 cap PO DAILY 07/12/24 07/12/24 History capsule famotidine 40 mg tablet 40 mg PO QAM 07/12/24 07/12/24 History pantoprazole 40 mg tablet,delayed 40 mg PO DAILYBB 07/12/24 07/12/24 History release Patient History Medical History Basal cell carcinoma (BCC) Hypertension Surgical History S/P laparoscopic hysterectomy TLH-BS, cysto S/P Mohs surgery for basal cell carcinoma H/O wisdom tooth extraction History of tubal ligation Hx of tonsillectomy Hx of cholecystectomy Family History Father Hearing loss Hypertension Kidney stones Grandfather Kidney stones Mother Pulmonary embolism post op PE Denies family history of Ovarian cancer Breast cancer Colorectal cancer Uterine cancer Social History Smoking Status: Current some day smoker Tobacco Type: Cigarettes Cigarettes Per Day: Socially, 1 pack per week; Second Hand Exposure: No; Do You Dip or Chew Tobacco: No; Hx Alcohol Use: Yes Alcohol type: beer Alcohol Intake Frequency Comment: social Hx Substance Use: No Preferred Language: Arabic Communication Ability: Effective 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 Beliefs That Will Affect Care: None marital status: Current Living Situation: Alone Other Information That Helps Us Care for You: No Feels Safe at Home: Yes Safety Concerns: Feels Safe At This Time Assistive Devices: Glasses Review of Systems Constitutional: no fever and no chills Respiratory: no cough and no dyspnea Cardiovascular: no chest pain Gastrointestinal: + abdominal pain, + nausea, + vomiting a nd + diarrhea/loose stools Psychiatric: no problem reported Hematologic / Lymphatic: no unexplained weight loss Physical Exam Constitutional: well developed Respiratory: normal respiratory effort Cardiovascular: Rate/Rhythm: regular rate Gastrointestinal (Abdomen): Inspection/Auscultation: abdomen normal to inspection and normal bowel sounds Percussion/Palpation: + abdomen tender (epigastric) Psychiatric: Orientation: alert and oriented x 3 Results & Data Vital Signs (Past 12 Hours) Vital Signs Temp Pulse Pulse Resp BP BP Pulse Ox 07/12/24 08:21 82 16 113/71 97 07/12/24 06:42 97 07/12/24 06:12 96 07/12/24 05:51 97 07/12/24 05:21 97 07/12/24 05:12 97 07/12/24 05:03 97 07/12/24 05:00 98/73 L 07/12/24 05:00 98/73 L 07/12/24 05:00 87 18 98/73 L 97 07/12/24 04:54 97 07/12/24 04:42 97 07/12/24 04:33 96 07/12/24 04:30 113/78 07/12/24 04:30 113/78 07/12/24 04:30 113/78 07/12/24 04:27 96 07/12/24 04:24 97 07/12/24 04:12 96 07/12/24 04:00 97 07/12/24 04:00 103/77 07/12/24 04:00 103/77 07/12/24 04:00 103/77 07/12/24 03:54 96 07/12/24 03:27 96 07/12/24 03:18 96 07/12/24 03:06 93 07/12/24 02:30 116/81 07/12/24 02:30 116/81 07/12/24 02:30 116/81 07/12/24 02:30 78 18 116/81 94 07/12/24 02:27 93 07/12/24 02:03 94 07/12/24 02:00 119/74 07/12/24 02:00 119/74 07/12/24 01:54 96 07/12/24 01:51 93 07/12/24 01:30 106/78 07/12/24 01:12 94 07/12/24 01:04 115/77 07/12/24 01:00 78 18 115/77 95 07/11/24 23:42 91 H 13 93 07/11/24 23:35 95 07/11/24 23:30 127/77 07/11/24 23:27 98 H 17 95 07/11/24 23:13 97 H 07/11/24 23:12 112/69 07/11/24 23:12 112/69 07/11/24 23:12 112/69 07/11/24 22:54 36 C L 115 H 16 134/81 93 O2 Del Method 07/12/24 08:21 Room Air 07/12/24 06:42 07/12/24 06:12 07/12/24 05:51 07/12/24 05:21 07/12/24 05:12 07/12/24 05:03 07/12/24 05:00 07/12/24 05:00 07/12/24 05:00 Room Air 07/12/24 04:54 07/12/24 04:42 07/12/24 04:33 07/12/24 04:30 07/12/24 04:30 07/12/24 04:30 07/12/24 04:27 07/12/24 04:24 07/12/24 04:12 07/12/24 04:00 07/12/24 04:00 07/12/24 04:00 07/12/24 04:00 07/12/24 03:54 07/12/24 03:27 07/12/24 03:18 07/12/24 03:06 07/12/24 02:30 07/12/24 02:30 07/12/24 02:30 07/12/24 02:30 Room Air 07/12/24 02:27 07/12/24 02:03 07/12/24 02:00 07/12/24 02:00 07/12/24 01:54 07/12/24 01:51 07/12/24 01:30 07/12/24 01:12 07/12/24 01:04 07/12/24 01:00 Room Air 07/11/24 23:42 07/11/24 23:35 Room Air 07/11/24 23:30 07/11/24 23:27 07/11/24 23:13 07/11/24 23:12 07/11/24 23:12 07/11/24 23:12 07/11/24 22:54 Room Air PG Care Time/CCT Total # of Minutes Spent Total Time Spent with Patient: Total time spent is greater than 50% in coordination of care (as documented) at patient's floor/unit and/or counseling patient: Coding Level of Care Code 31602 IN/OBS CONSULT LVL 4,60M Diagnoses Abnormal CT scan, small bowel R93.3
--- NOTE | 2024-07-12 11:34 | Anesthesiology Consultation ---
Date of Service July 12, 2024 Assessment & Plan ASA ASA2 Proposed Anesthesia Anesthesia Type: MAC Risk / Benefits Reviewed With: PT / POA / Parent / Guardian, Accepts Plan and Informed Consent Obtained History Surgery Operation Date: 07/12/24 16:45 Proposed Procedures p Small Bowel Enteroscopy Braulio Ramsey MD Height/Weight Height: 5 ft 5 in Weight: 95.8 kg Allergies Allergy/AdvReac Type Severity Reaction Status Date / Time No Known Allergies Allergy Verified 08/13/22 15:17 Medications Home Medications Medication Instructions Recorded Confirmed Last Taken CPAP Machine #8 cm 08/17/19 07/12/24 Unknown amlodipine 10 mg-benazepril 20 mg 1 cap PO DAILY 07/12/24 07/12/24 Unknown capsule famotidine 40 mg tablet 40 mg PO QAM 07/12/24 07/12/24 Unknown pantoprazole 40 mg tablet,delayed 40 mg PO DAILYBB 07/12/24 07/12/24 Unknown release Active Medications Generic Name Dose Route Start Last Admin Trade Name Ghanshyamq PRN Reason Stop Dose Admin Amlodipine Besylate 10 mg 07/12/24 09:00 07/12/24 09:17 Amlodipine Besylate 5 Mg Tab PO 08/11/24 08:59 10 mg DAILY BJ Administration Enalapril Maleate 10 mg 07/12/24 09:00 07/12/24 09:17 Enalapril Maleate 10 Mg Tab PO 08/11/24 08:59 10 mg DAILY BJ Administration Lactated Ringer's 1,000 mls @ 80 mls/hr 07/12/24 03:15 07/12/24 04:21 Lr IV 07/13/24 03:14 80 mls/hr .[id number] BJ Administration Pantoprazole Sodium 40 mg in 10 mls @ 5 mls/min 07/12/24 09:00 07/12/24 09:18 Protonix IV 08/11/24 08:59 5 mls/min DAILY BJ Administration NPO Date Last Intake of Fluids: 07/12/24 Time Last Intake of Fluids: 09:15 Date Last Intake of Solids: 07/11/24 Time Last Intake of Solids: 15:30 Past Medical History Medical History Basal cell carcinoma (BCC) Hypertension Exercise / Class Metabolic Activity II 4-5 Yardwork/Stairs/Walk up hill Past Family History Family History Father Hearing loss Hypertension Kidney stones Grandfather Kidney stones Mother Pulmonary embolism post op PE Denies family history of Ovarian cancer Breast cancer Colorectal cancer Uterine cancer Past Surgical History Surgical History S/P laparoscopic hysterectomy TLH-BS, cysto S/P Mohs surgery for basal cell carcinoma H/O wisdom tooth extraction History of tubal ligation Hx of tonsillectomy Hx of cholecystectomy Past Anesthesia History No Hx of Anesthesia Complications and No Family Hx of Anesthesia Complications History of PONV No Hx of PONV and No Hx of Motion Sickness Social History Smoking Status: Current some day smoker Smoking cigarettes per day: Socially, 1 pack per week Do You Dip or Chew Tobacco: No Hx Alcohol Use: Yes Alcohol type: beer alcohol intake frequency: a few times a week Hx Substance Use: No substance use type: does not use Physical Exam Vital Signs Last Vital Signs Temp 37.6 C H 07/12/24 11:11 Pulse 85 07/12/24 11:11 Resp 16 07/12/24 11:11 BP 110/65 07/12/24 11:11 Pulse Ox 96 07/12/24 11:11 O2 Del Method Room Air 07/12/24 11:11 Constitutional no acute distress ENMT Mouth: no dentition abnormality Thyromental Distance: > or= 3.5 Finger Breadths Mallampati Class: III Neck normal visual inspection Respiratory normal respiratory effort; no respiratory distress Auscultation: lungs clear to auscultation bilaterally Cardiovascular Rate/Rhythm: regular rate and regular rhythm Heart Sounds: no murmur Musculoskeletal Spine: normal cervical ROM Psychiatric Orientation: alert and oriented x 3 Testing Laboratory Results 07/11/24 23:07 07/11/24 23:07 Urine Color Yellow 07/11/24 23:04 Urine Appearance Turbid (Clear) A 07/11/24 23:04 Urine pH 5.0 (4.5-7.5) 07/11/24 23:04 Ur Specific [place] 1.022 (1.000-1.030) 07/11/24 23:04 Urine Protein Negative (Negative) 07/11/24 23:04 Urine Glucose (UA) Negative (Negative) 07/11/24 23:04 Urine Ketones Trace (Negative) H 07/11/24 23:04 Urine Nitrite Negative (Negative) 07/11/24 23:04 Ur Leukocyte Esterase Trace (Negative) H 07/11/24 23:04 Urine WBC (Auto) 21-50 /hpf (0-5) H 07/11/24 23:04 Urine RBC (Auto) >20 /hpf (0-2) H 07/11/24 23:04 U Hyaline Cast (Auto) 0-2 /lpf (0-2) 07/11/24 23:04 U Epithel Cells (Auto) >20 /hpf (0-2) H 07/11/24 23:04 Urine Bacteria (Auto) 4+ (None Seen) H 07/11/24 23:04 Day of Procedure Evaluation. Date of Surgery July 12, 2024 Height/Weight Height: 5 ft 5 in Weight: 95.8 kg Vital Signs Last Vital Signs Temp 37.6 C H 07/12/24 11:11 Pulse 85 07/12/24 11:11 Resp 16 07/12/24 11:11 BP 110/65 07/12/24 11:11 Pulse Ox 96 07/12/24 11:11 O2 Del Method Room Air 07/12/24 11:11 Allergies Allergy/AdvReac Type Severity Reaction Status Date / Time No Known Allergies Allergy Verified 08/13/22 15:17 Medications Home Medications Medication Instructions Recorded Confirmed Last Taken CPAP Machine #8 cm 08/17/19 07/12/24 Unknown amlodipine 10 mg-benazepril 20 mg 1 cap PO DAILY 07/12/24 07/12/24 Unknown capsule famotidine 40 mg tablet 40 mg PO QAM 07/12/24 07/12/24 Unknown pantoprazole 40 mg tablet,delayed 40 mg PO DAILYBB 07/12/24 07/12/24 Unknown release Active Medications Generic Name Dose Route Start Last Admin Trade Name Freq PRN Reason Stop Dose Admin Amlodipine Besylate 10 mg 07/12/24 09:00 07/12/24 09:17 Amlodipine Besylate 5 Mg Tab PO 08/11/24 08:59 10 mg DAILY BJ Administration Enalapril Maleate 10 mg 07/12/24 09:00 07/12/24 09:17 Enalapril Maleate 10 Mg Tab PO 08/11/24 08:59 10 mg DAILY BJ Administration Lactated Ringer's 1,000 mls @ 80 mls/hr 07/12/24 03:15 07/12/24 04:21 Lr IV 07/13/24 03:14 80 mls/hr .[id number] BJ Administration Pantoprazole Sodium 40 mg in 10 mls @ 5 mls/min 07/12/24 09:00 07/12/24 09:18 Protonix IV 08/11/24 08:59 5 mls/min DAILY BJ Administration Past Anesthesia History No Hx of Anesthesia Complications and No Family Hx of Anesthesia Complications History of PONV No Hx of PONV and No Hx of Motion Sickness NPO Date Last Intake of Fluids: 07/12/24 Time Last Intake of Fluids: 09:15 Date Last Intake of Solids: 07/11/24 Time Last Intake of Solids: 15:30 Home Medications Home Medications Medication Instructions Recorded Confirmed Last Taken CPAP Machine #8 cm 08/17/19 07/12/24 Unknown amlodipine 10 mg-benazepril 20 mg 1 cap PO DAILY 07/12/24 07/12/24 Unknown capsule famotidine 40 mg tablet 40 mg PO QAM 07/12/24 07/12/24 Unknown pantoprazole 40 mg tablet,delayed 40 mg PO DAILYBB 07/12/24 07/12/24 Unknown release Active Medications Generic Name Dose Route Start Last Admin Trade Name Freq PRN Reason Stop Dose Admin Amlodipine Besylate 10 mg 07/12/24 09:00 07/12/24 09:17 Amlodipine Besylate 5 Mg Tab PO 08/11/24 08:59 10 mg DAILY BJ Administration Enalapril Maleate 10 mg 07/12/24 09:00 07/12/24 09:17 Enalapril Maleate 10 Mg Tab PO 08/11/24 08:59 10 mg DAILY BJ Administration Lactated Ringer's 1,000 mls @ 80 mls/hr 07/12/24 03:15 07/12/24 04:21 Lr IV 07/13/24 03:14 80 mls/hr .[id number] BJ Administration Pantoprazole Sodium 40 mg in 10 mls @ 5 mls/min 07/12/24 09:00 07/12/24 09:18 Protonix IV 08/11/24 08:59 5 mls/min DAILY BJ Administration Exercise / Class Metabolic Activity Metabolic Activity: II 4-5 Yardwork/Stairs/Walk up hill Physical Exam Constitutional: no acute distress Mouth: no dentition abnormality Thyromental Distance: > or= 3.5 Finger Breadths Mallampati Class: III Neck: + visual inspection normal Respiratory: + respiratory effort normal and + clear to auscultation bilaterally; no respiratory distress Cardiovascular: + regular rate and + regular rhythm; no murmur Musculoskeletal: no limited cervical ROM Psychiatric: + alert and + oriented x 3 ASA ASA2 Proposed Anesthesia Proposed Anesthesia: MAC Risk / Benefits Reviewed With: PT / POA / Parent / Guardian, Accepts Plan and Informed Consent Obtained
--- NOTE | 2024-07-12 11:46 | Electrocardiogram Report ---
Test Reason : Blood Pressure : */* mmHG Vent. Rate : 87 BPM Atrial Rate : 87 BPM P-R Int : 158 ms QRS Dur : 82 ms QT Int : 356 ms P-R-T Axes : 32 -21 23 degrees QTcB Int : 428 ms Normal sinus rhythm Poor R wave progression, consider anterior IN vs. lead placement vs. LVH Abnormal ECG When compared with ECG of 06-Nov-2020 13:54, Nonspecific T wave abnormality now evident in Anterior leads Confirmed by Madhu Navarro ([id number]) on 07/12/2024 11:46:29 AM Referred By: REFERRED SELF Confirmed By: Madhu Navarro
[2024-07-12] MEDS ORDERED: LIDOCAINE 2% 2 ML VIAL/AMP(20MG/ML) INFIL ONE (12:01)
[2024-07-12] MEDS ORDERED: MIDAZOLAM HCL 1 MG/ML 2ML VIAL ONE (12:01)
[2024-07-12] MEDS ORDERED: PROPOFOL IV EMULSION 10 MG/ML 20 ML VIAL IV ONE (12:01)
[2024-07-12] MEDS ORDERED: DEXAMETHASONE SOD INJ 4 MG/ML VIAL ONE (12:01)
[2024-07-12] MEDS ORDERED: ONDANSETRON INJ 2 MG/ML 2 ML VIAL ONE (12:01)
[2024-07-12] MEDS ORDERED: fentaNYL citrate PF 100 MCG/2 ML VIAL ONE (12:01)
[2024-07-12] MEDS ORDERED: SUCCINYLCHOLINE CHLORIDE 20 MG/ML 10 ML VIAL IV ONE (12:04)
[2024-07-12] MEDS ORDERED: ePHEDrine sulfate 50 MG/5 ML SYR ONE (12:54)
[2024-07-12] MEDS ORDERED: PHENYLEPHRINE 100MCG/ML 5ML SYR ONE (12:54)
[2024-07-12] MEDS ORDERED: ATROPINE SULFATE 0.1 MG/ML 10ML SYR IV PRN (13:04)
[2024-07-12] MEDS ORDERED: fentaNYL citrate PF 100 MCG/2 ML VIAL IV PRN (13:04)
[2024-07-12] MEDS ORDERED: ePHEDrine sulfate 50 MG/ML AMP IV PRN (13:04)
--- NOTE | 2024-07-12 13:35 | Anesthesiology Progress Note ---
Date of Service July 12, 2024 Anesthesia Post Procedure Vital Signs Vital Signs: Temp Pulse Pulse Pulse Resp BP BP 07/12/24 13:25 95 H 18 108/61 07/12/24 13:17 36.7 C 109 H 16 111/54 L 07/12/24 11:11 37.6 C H 85 16 110/65 07/12/24 09:57 36.8 C 91 H 16 102/70 07/12/24 08:21 82 16 113/71 07/12/24 06:42 07/12/24 06:12 07/12/24 05:51 07/12/24 05:21 07/12/24 05:12 07/12/24 05:03 07/12/24 05:00 98/73 L 07/12/24 05:00 98/73 L 07/12/24 05:00 87 18 98/73 L 07/12/24 04:54 07/12/24 04:42 07/12/24 04:33 07/12/24 04:30 113/78 07/12/24 04:30 113/78 07/12/24 04:30 113/78 07/12/24 04:27 07/12/24 04:24 07/12/24 04:12 07/12/24 04:00 07/12/24 04:00 103/77 07/12/24 04:00 103/77 07/12/24 04:00 103/77 07/12/24 03:54 07/12/24 03:27 07/12/24 03:18 07/12/24 03:06 07/12/24 02:30 116/81 07/12/24 02:30 116/81 07/12/24 02:30 116/81 07/12/24 02:30 78 18 116/81 07/12/24 02:27 07/12/24 02:03 07/12/24 02:00 119/74 07/12/24 02:00 119/74 07/12/24 01:54 07/12/24 01:51 07/12/24 01:30 106/78 07/12/24 01:12 07/12/24 01:04 115/77 07/12/24 01:00 78 18 115/77 07/11/24 23:42 91 H 13 07/11/24 23:35 07/11/24 23:30 127/77 07/11/24 23:27 98 H 17 07/11/24 23:13 97 H 07/11/24 23:12 112/69 07/11/24 23:12 112/69 07/11/24 23:12 112/69 07/11/24 22:54 36 C L 115 H 16 134/81 Pulse Ox O2 Del Method O2 Flow Rate 07/12/24 13:25 98 Oxymask 4 07/12/24 13:17 96 Oxymask 4 07/12/24 11:11 96 Room Air 07/12/24 09:57 95 Room Air 07/12/24 08:21 97 Room Air 07/12/24 06:42 97 07/12/24 06:12 96 07/12/24 05:51 97 07/12/24 05:21 97 07/12/24 05:12 97 07/12/24 05:03 97 07/12/24 05:00 07/12/24 05:00 07/12/24 05:00 97 Room Air 07/12/24 04:54 97 07/12/24 04:42 97 07/12/24 04:33 96 07/12/24 04:30 07/12/24 04:30 07/12/24 04:30 07/12/24 04:27 96 07/12/24 04:24 97 07/12/24 04:12 96 07/12/24 04:00 97 07/12/24 04:00 07/12/24 04:00 07/12/24 04:00 07/12/24 03:54 96 07/12/24 03:27 96 07/12/24 03:18 96 07/12/24 03:06 93 07/12/24 02:30 07/12/24 02:30 07/12/24 02:30 07/12/24 02:30 94 Room Air 07/12/24 02:27 93 07/12/24 02:03 94 07/12/24 02:00 07/12/24 02:00 07/12/24 01:54 96 07/12/24 01:51 93 07/12/24 01:30 07/12/24 01:12 94 07/12/24 01:04 07/12/24 01:00 95 Room Air 07/11/24 23:42 93 07/11/24 23:35 95 Room Air 07/11/24 23:30 07/11/24 23:27 95 07/11/24 23:13 07/11/24 23:12 07/11/24 23:12 07/11/24 23:12 07/11/24 22:54 93 Room Air Transfer of Care Handoff Completed per policy Notes Mental Status: alert / awake / arousable Patient Amnestic to Procedure: Yes Nausea / Vomiting: adequately controlled Pain: adequately controlled Airway Patency, RR, SpO2: stable & adequate BP & HR: stable & adequate Hydration State: stable & adequate Anesthetic Complications: no major complications apparent
[2024-07-12 16:46] LABS: Adenovirus F 40/41 PCR Not Detected (NotDetected); Astrovirus PCR Not Detected (NotDetected); Campylobacter PCR Not Detected (NotDetected); Cryptosporidium PCR Not Detected (NotDetected); Cyclospora cayetanensis PCR Not Detected (NotDetected); Entamoeba histolytica PCR Not Detected (NotDetected); Enteroaggregative E.coli(EAEC) Not Detected (NotDetected); Enteropathogenic E.coli (EPEC) Not Detected (NotDetected); Enterotoxigenic E.coli (ETEC) Not Detected (NotDetected); Giardia lamblia PCR Not Detected (NotDetected); Norovirus GI/GII PCR Not Detected (NotDetected); Plesiomonas shigelloides PCR Not Detected (NotDetected); Rotavirus A PCR Not Detected (NotDetected); Salmonella PCR Not Detected (NotDetected); Sapovirus PCR Not Detected (NotDetected); Shiga-like Toxin E.coli (STEC) Not Detected (NotDetected); Shigella/Enteroinvasive E.coli Not Detected (NotDetected); Vibrio cholerae PCR Not Detected (NotDetected); Vibrio species PCR Not Detected (NotDetected); Yersinia enterocolitica PCR Not Detected (NotDetected)
[2024-07-12 17:07] VITALS: RESP 18
--- NOTE | 2024-07-12 20:55 | Billing Data ---
Date of Service July 12, 2024 Coding Level of Care Code 97008 INT INP/OBS CARE
[2024-07-12] MEDS: ACETAMINOPHEN 325 MG TAB PO PRN (23:16)
[2024-07-13 03:06] VITALS: O2SAT 94
[2024-07-13 08:43] VITALS: BP 112/71; PULSE 81; TEMP 97.9
[2024-07-13 09:26] LABS: Basophils # (auto) 0.03 K/uL (0.00-0.20); Basophils % (auto) 0.2 %; Eosinophils # (auto) 1.43 K/uL (0.00-0.50); Eosinophils % (auto) 10.6 %; Hemoglobin 12.4 g/dl (12.0-16.0); Immature Granulocytes # (auto) 0.05 K/uL (0.01-0.20); Immature Granulocytes % (auto) 0.4 %; Lymphocytes # (auto) 2.02 K/uL (1.20-3.40); Lymphocytes % (auto) 14.9 %; Mean Corpuscular Hemoglobin 26.1 pg (25.0-34.0); Mean Corpuscular Hgb Conc 31.8 g/dL (32.0-36.0); Mean Corpuscular Volume 81.9 fL (80.0-100.0); Mean Platelet Volume 8.7 fL (9.4-12.4); Monocytes # (auto) 1.23 K/uL (0.11-0.59); Monocytes % (auto) 9.1 %; Neutrophils # (auto) 8.77 K/uL (1.40-6.50); Neutrophils % (auto) 64.8 %; Platelet Count 458 K/uL (130-400); RDW Standard Deviation 41.6 fL (36.4-46.3); Red Blood Count 4.76 M/uL (4.20-5.40); White Blood Count 13.53 K/ul (4.8-10.8)
[2024-07-13 09:43] LABS: Albumin Globulin Ratio 1.5 (0.9-2); Albumin Level 3.7 gm/dl (3.4-5.0); Bilirubin,Total 0.6 mg/dl (0.2-1.0); Calcium 9.3 mg/dl (8.6-10.3); Creatinine Clr Calc Pharmacy 100.9 ml/min; Globulin 2.5 gm/dl (2.5-4.0); Potassium 3.5 mmol/L (3.5-5.1); Total Protein 6.2 gm/dl (6.0-8.3)
--- NOTE | 2024-07-13 11:31 | Discharge Summary ---
Date of Service July 13, 2024 Admission HPI Per Admitting Provider Pt is a 53 yo female with PMH of HTN presenting to the ER d/t abdominal pain. Pt notes her abdominal pain began ~2 months ago. It was intermittent at that time; she was evaluated by her PCP who treated her for acid reflux. She was started on acid reducing medications and set up for an EGD which she was set to have in July. Over the last 3 days, she notes constant, dull, aching epigastric abdominal pain. She has had watery diarrhea w/o visible blood and vomiting. She has been unable to keep food/fluids down which prompted her to come to the hospital for evaluation. In the ER, pt was given zofran x1 and dilaudid 0.5mg x1. Admission Exam Per Admitting Provider Constitutional: NAD, vitals WNL. Eyes: Conjunctivae normal. Respiratory: CTA bilaterally. Non labored breathing. No rhonchi, wheezing, or crackles. Cardiovascular: RRR. No murmurs noted. No LE edema. Gastrointestinal (Abdomen): Tender in epigastric region, +BS. No guarding. No masses noted. Skin: No rashes or skin lesions noted. Neurologic: Sensation grossly intact. No FND appreciated. Psychiatric: Speech of normal pace and content. Mood and affect congruent. Principal Diagnosis Possible SBO, ? Discharge Exam Constitutional: well-appearing, no acute distress HEENT: NCAT, no conjunctival injection CV: regular rhythm, no murmur appreciated Resp: CTABL, no wheezes/rales/rhonchi appreciated, no increased work of hilda thing GI: soft, nondistended, mildly tender on exam MSK: no gross deformities appreciated Skin: warm, dry, no rash appreciated Neuro: alert, oriented, no focal neurologic deficit appreciated Discharge Data Allergies Allergy/AdvReac Type Severity Reaction Status Date / Time No Known Allergies Allergy Verified 08/13/22 15:17 Consultations 07/12/24 02:16 ED Decision to Admit Stat 07/12/24 02:49 Consult Gastroenterology Routine Procedures Performed Operation Date: 07/12/24 16:45 Actual Procedures p Small Bowel Enteroscopy BX/CYT IN OR2 - Peter Ramsey MD Ordered Studies 07/11/24 23:34 CT abd pelvis IV con only Stat Hospital Course (1) Small bowel mass: Pt is a 53 yo female with PMH of HTN presenting to the ER d/t abdominal pain. Small bowel mass/abdominal pain - unclear etiology of pt's pain - CTAP showing possible small bowel mass measuring 1.6cm x 2.4cm - pt had colonoscopy in 2020 with removal of two 2mm hyperplastic polyps with recommendation for repeat colonoscopy in 5 yrs which makes pt due now - pain control with Tylenol, Toradol, and Dilaudid PRN; PPI daily; nausea control with zofran PRN - EGD performed today without findings of any significant pathology. - Will need follow up with GI: patient prefers [facility] GI, nurse navigator to help coordinate - Day of discharge patient was able to tolerate a regular diet without nausea, diarrhea, or abdominal pain Leukocytosis - unclear etiology at this time - Remains afebrile - left shift present, thrombocytosis - repeat labs on day of discharge demonstrate the same, will need outpatient workup HTN - home medications continued during hospitalization Sleep apnea - CPAP HS (2) Sleep apnea in adult: (3) Hypertension: Total Time Total Time Spent Total Time Spent (In Minutes): see attending documentation Discharge Plan Discharge Items Patient Disposition: Home - Self-Care Reason For Visit: ABDOMINAL PAIN, JEJUNAL MASS Discharge Diagnosis: Possible SBO, Jejunal mass not demonstrated on EGD, needs further evaluation, possibly further imaging Activity: Resume your previous activity Activity Comment: as tolerated Non-emergency contact: Primary Care Provider and Cook Apprentice Call non-emergency contact if: you have any medication questions, your symptoms worsen and you have a fever Follow-up/Referrals: Rose Snell DO [Primary Care Provider] - Diet: Regular Addtl Attending Provider Instructions: You were admitted to the hospital for abdominal pain, nausea, and vomiting. When you were admitted a CT scan demonstrated a small mass in a part of the intestine called the jejunum. A EGD (scope) was performed to your upper GI tract that did not demonstrate an obvious mass. This does not rule out any possible pathology. 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 While you were hospitalized you were treated with bowel rest and gradual re-introduction of food as you were able to tolerate. A discharge summary will be sent to your primary care physician to ensure continuity of care. Please bring this discharge summary with you to your next office appointment so that your provider can review it at that time. Follow-up appointments: Make a follow-up appointment with your PCP within the next week. It is very important that you follow up with them shortly after discharge from the hospital. We will make a referral to [facility] for you to make a follow up appointment. Keep all your follow-up appointments as already scheduled. If you cannot make an appointment, notify your provider. Take your medications as instructed; do not skip a dose of your medicines. Make sure all of your doctors know every medicine you are taking (including dxhe-epo-hjgyleg medicines, vitamins, and supplements). Call your primary care provider before taking any new medicines (including bzis-qdn-fbxiqst medicines, vitamins, and supplements), because some of these may interact with your current medications, or may make your symptoms worse. Tell your primary care provider if you cannot afford your medications. CONTACT YOUR PRIMARY CARE PROVIDER if you experience any of the following: Return of abdominal pain Return of nausea or vomiting Difficulty following your treatment plan, or difficulty taking medications CALL 911 OR GO TO THE EMERGENCY DEPARTMENT if you experience any of the following: Sudden, severe abdominal pain or nausea/vomiting Severe chest pain, or chest pain that radiates (moves) to your jaw or arm Sudden, severe shortness of breath or difficulty breathing Thank you for allowing us to participate in your care. Pending Studies at Discharge: No Stand-Alone Forms: [facility] Medications and DC Order Prescriptions: Continued (DME) CPAP Machine Misc See Rx Instructions .ROUTE .MEDSUPPLY Qty: 8 0RF Rx Instructions: New CPAP & service: CPAP 8cm H20, tubing, supplies, heated humidification. AHI /compliance w/ modem. Nasal mask famotidine 40 mg tablet 40 mg PO QAM pantoprazole 40 mg tablet,delayed release (DR/EC) 40 mg PO DAILYBB Rx Instructions: WIAT AT LEAST 30 MIN TO EAT amlodipine-benazepril 10-20 mg capsule 1 cap PO DAILY Discharge Orders: Discharge Order (Routine); Ordered 07/13/24 Ordered By: Ramakrishna Colby/Other Patient Handouts: Famotidine Oral Tablet, Pantoprazole Delayed Release Oral Tablet, Self-Care for Vomiting and Diarrhea Admission Data Admit Date/Time: 07/12/24 02:49 Attending Provider: Josefa Chauhan Admit Provider: Liliane Hill Primary Care Provider: Rose Snell Other Providers: Nhung Silva Tomasz J. Other Interventions: Discharge Summary Assessment (RN) Last Done: 07/13/24 13:51 Supervising Physician Co-Signing Physician Notes I personally examined the patient and verified elise points of history and exam, discussed case, and agree with decision making and plan documented by Dr. Castillo. Patient is a 53-year-old female on admission for severe epigastric abdominal pain found to have an abnormal CT scan with focal dilatation of the small bowel and suggestion of mass measuring 1.6 x 2.4 cm. Prior to admission, experienced 3 days of vomiting and diarrhea. Subsequently patient underwent enteroscopy, 2 cold biopsies were obtained at ampulla [place], otherwise no significant pathology was found, biopsy paths pending. Patient had complete resolution of symptoms, no tenderness on exam, she was able to advance diet without difficulty. Patient would like to establish with [facility] gastroenterology for follow-up. Resident Activity Tracking Resident Involvement: Resident Care Provided Care Provided: Adult Hospital Medicine
[2024-07-13] MEDS: INFLUENZA VACC TS2024-25(6m+)/PF (IIV3) 0.5mL Syr IM ONE (15:03)
== END 2024-07-13 15:05 | disposition home or self-care (01) | DRG 395 ==
LOC: SUATTDRO → ED 22:51 → EDINP 07-12 02:49 → SUATTDRO 07-12 02:49 → 3E 07-12 04:07